=== PATIENT | male | born 1975 | race Caucasian/White ===

== ENCOUNTER 2016-11-27 07:53 | Outpatient (RCR) | payer MEDICARE, MEDICAID | END 2016-11-28 | LOC: M PT 07:53 | PROVIDERS: ATTEND Student in an Organized Health Care Education/Training Program | DX: S82.034D Nondisplaced transverse fracture of right patella, subsequent encounter for closed fracture with routine healing (principal); X58.XXXD Exposure to other specified factors, subsequent encounter; Y92.9 Unspecified place or not applicable | CPT/HCPCS: 97110; 97161; G8978; G8979 ==

== ENCOUNTER 2016-12-03 09:22 | Outpatient (RCR) | payer MEDICARE, MEDICAID | END 2016-12-28 | LOC: M PT 09:22 | PROVIDERS: ATTEND Student in an Organized Health Care Education/Training Program | DX: S82.034D Nondisplaced transverse fracture of right patella, subsequent encounter for closed fracture with routine healing (principal); X58.XXXD Exposure to other specified factors, subsequent encounter; Y92.9 Unspecified place or not applicable | CPT/HCPCS: 97110; G8979; G8980 ==

== ENCOUNTER 2020-05-14 07:38 | Outpatient (CLI) | payer MEDICARE, MEDICAID ==
[~2020-05-14] VITALS: Ht 182.9 cm; Wt 94.5 kg
[2020-05-14 07:45] VITALS: BP 133/77
[2020-05-14] MEDS ORDERED: NATALIZUMAB OVER 1 HOUR IV ONE ×2 (08:00)
[2020-05-14] MEDS ORDERED: TRAZ-252 PO (08:03)
[2020-05-14] MEDS ORDERED: OXYB5TAB10 PO (08:04)
[2020-05-14] MEDS ORDERED: TYSA1INJ IV (08:05)
[2020-05-14 08:08] VITALS: BP 133/77
[2020-05-14 10:00] VITALS: BP 114/69
== END 2020-05-14 10:00 | disposition home or self-care (01) ==
LOC: M INFU 07:38
PROVIDERS: ATTEND Psychiatry & Neurology Neurology
DX: G35 Multiple sclerosis (principal)
CPT/HCPCS: 96365; J2323

== ENCOUNTER 2020-06-13 07:46 | Outpatient (CLI) | payer MEDICARE, MEDICAID ==
[~2020-06-13] VITALS: Ht 182.9 cm; Wt 110.0 kg
[~2020-06-13 07:46] MED LIST: OXYB5TAB10 PO; TRAZ-252 PO; TYSA1INJ IV
[2020-06-13 07:50] VITALS: BP 127/70
[2020-06-13] MEDS: NATALIZUMAB OVER 1 HOUR IV ONE ×2 (08:19)
[2020-06-13 09:40] VITALS: BP 155/81
== END 2020-06-13 09:40 | disposition home or self-care (01) ==
LOC: M INFU 07:46
PROVIDERS: ATTEND Psychiatry & Neurology Neurology
DX: G35 Multiple sclerosis (principal)
CPT/HCPCS: 96365; J2323

== ENCOUNTER 2020-07-13 08:32 | Outpatient (CLI) | payer MEDICARE, MEDICAID ==
[~2020-07-13] VITALS: Ht 182.9 cm; Wt 100.0 kg
[~2020-07-13 08:32] MED LIST changes: +NATALIZUMAB OVER 1 HOUR IV ONE
[2020-07-13 08:35] VITALS: BP 112/74
[2020-07-13 10:15] VITALS: BP 106/73
== END 2020-07-13 10:15 | disposition home or self-care (01) ==
LOC: M INFU 08:32
PROVIDERS: ATTEND Psychiatry & Neurology Neurology
DX: G35 Multiple sclerosis (principal)
CPT/HCPCS: 96365; J2323

== ENCOUNTER 2020-09-12 07:53 | Outpatient (CLI) | payer MEDICARE, MEDICAID ==
[~2020-09-12] VITALS: Ht 182.9 cm; Wt 102.0 kg
[~2020-09-12 07:53] MED LIST changes: -NATALIZUMAB OVER 1 HOUR IV ONE
[2020-09-12 08:00] VITALS: BP 121/71
[2020-09-12] MEDS ORDERED: NATALIZUMAB OVER 1 HOUR IV ONE ×2 (08:00)
[2020-09-12 09:45] VITALS: BP 110/66
== END 2020-09-13 09:45 | disposition home or self-care (01) ==
LOC: M INFU 07:53
PROVIDERS: ATTEND Psychiatry & Neurology Neurology
DX: G35 Multiple sclerosis (principal)
CPT/HCPCS: 96365; J2323

== ENCOUNTER 2020-10-12 07:57 | Outpatient (CLI) | payer MEDICARE, MEDICAID ==
[~2020-10-12] VITALS: Ht 182.9 cm; Wt 102.0 kg
[2020-10-12] MEDS ORDERED: NATALIZUMAB OVER 1 HOUR IV ONE ×2 (08:00)
[2020-10-12 08:12] VITALS: BP 125/75
[2020-10-12 08:16] VITALS: BP 125/75
[2020-10-12 09:44] VITALS: BP 109/67
== END 2020-10-12 09:50 | disposition home or self-care (01) ==
LOC: M INFU 07:57
PROVIDERS: ATTEND Psychiatry & Neurology Neurology
DX: G35 Multiple sclerosis (principal)
CPT/HCPCS: 96365; J2323

== ENCOUNTER 2020-11-12 07:51 | Outpatient (CLI) | payer MEDICARE, MEDICAID ==
[~2020-11-12] VITALS: Ht 182.9 cm; Wt 105.7 kg
[~2020-11-12 07:51] MED LIST changes: +ALBUTEROL SULFATE 2.5 MG/0.5 ML INH NEB SOLN INH PRN; +EPINEPHrine INJ 1 MG/ML 1ML AMP IM PRN; +diphenhydrAMINE 50MG/ML VIAL (J1200) IV PRN; +methylPREDNISolone 125MG 2ML VIAL IV PRN
[2020-11-12] MEDS ORDERED: NS 1,000 ML IV ONE (08:00)
[2020-11-12] MEDS ORDERED: NATALIZUMAB OVER 1 HOUR IV ONE ×2 (08:00)
[2020-11-12 08:05] VITALS: BP 122/73
== END 2020-11-12 09:50 | disposition home or self-care (01) ==
LOC: M INFU 07:51
PROVIDERS: ATTEND Psychiatry & Neurology Neurology
DX: G35 Multiple sclerosis (principal)
CPT/HCPCS: 96365; J2323

== ENCOUNTER 2020-12-10 07:49 | Outpatient (CLI) | payer MEDICARE, MEDICAID ==
[~2020-12-10] VITALS: Ht 182.9 cm; Wt 105.7 kg
[2020-12-10 08:00] VITALS: BP 112/82
[2020-12-10] MEDS ORDERED: NATALIZUMAB OVER 1 HOUR IV ONE ×2 (08:00)
[2020-12-10 09:30] VITALS: BP 115/76
== END 2020-12-10 09:30 | disposition home or self-care (01) ==
LOC: M INFU 07:49
PROVIDERS: ATTEND Psychiatry & Neurology Neurology
DX: G35 Multiple sclerosis (principal)
CPT/HCPCS: 96365; J2323

== ENCOUNTER 2021-01-07 09:52 | Outpatient (CLI) | payer MEDICARE, MEDICAID ==
[~2021-01-07] VITALS: Ht 182.9 cm; Wt 105.7 kg
[2021-01-07 09:55] VITALS: BP 133/60
[2021-01-07] MEDS ORDERED: NATALIZUMAB OVER 1 HOUR IV ONE ×2 (10:00)
[2021-01-07] MEDS ORDERED: NS 1,000 ML IV SCH (10:00)
[2021-01-07 11:20] VITALS: BP 134/92
== END 2021-01-07 11:25 | disposition home or self-care (01) ==
LOC: M INFU 09:52
PROVIDERS: ATTEND Psychiatry & Neurology Neurology
DX: G35 Multiple sclerosis (principal)
CPT/HCPCS: 96365; J2323

== ENCOUNTER 2021-02-04 08:13 | Outpatient (CLI) | payer MEDICARE, MEDICAID ==
[~2021-02-04] VITALS: Ht 182.9 cm; Wt 105.7 kg
[~2021-02-04 08:13] MED LIST changes: -ALBUTEROL SULFATE 2.5 MG/0.5 ML INH NEB SOLN INH PRN; -EPINEPHrine INJ 1 MG/ML 1ML AMP IM PRN; -diphenhydrAMINE 50MG/ML VIAL (J1200) IV PRN; -methylPREDNISolone 125MG 2ML VIAL IV PRN
[2021-02-04] MEDS ORDERED: diphenhydrAMINE 50MG/ML VIAL (J1200) IV PRN (08:30)
[2021-02-04] MEDS ORDERED: NS 1,000 ML IV SCH (08:30)
[2021-02-04] MEDS ORDERED: NATALIZUMAB OVER 1 HOUR IV ONE ×2 (08:30)
[2021-02-04] MEDS ORDERED: methylPREDNISolone 125MG 2ML VIAL IV PRN (08:30)
[2021-02-04] MEDS ORDERED: ALBUTEROL SULFATE 2.5 MG/0.5 ML INH NEB SOLN INH PRN (08:30)
[2021-02-04] MEDS ORDERED: EPINEPHrine INJ 1 MG/ML 1ML AMP IM PRN (08:30)
[2021-02-04 08:50] VITALS: BP 130/75
[2021-02-04 10:00] VITALS: BP 128/64
== END 2021-02-04 10:00 | disposition home or self-care (01) ==
LOC: M INFU 08:13
PROVIDERS: ATTEND Psychiatry & Neurology Neurology
DX: G35 Multiple sclerosis (principal)
CPT/HCPCS: 96365; J2323

== ENCOUNTER 2021-03-05 08:23 | Outpatient (CLI) | payer MEDICARE, MEDICAID ==
[~2021-03-05] VITALS: Ht 182.9 cm; Wt 105.7 kg
[~2021-03-05 08:23] MED LIST changes: +ALBUTEROL SULFATE 2.5 MG/0.5 ML INH NEB SOLN INH PRN; +EPINEPHrine INJ 1 MG/ML 1ML AMP IM PRN; +NATALIZUMAB OVER 1 HOUR IV ONE; +NS 1,000 ML IV SCH; +diphenhydrAMINE 50MG/ML VIAL (J1200) IV PRN; +methylPREDNISolone 125MG 2ML VIAL IV PRN
[2021-03-05 08:38] VITALS: BP 109/70
[2021-03-05 09:55] VITALS: BP 111/76
== END 2021-03-05 09:55 | disposition home or self-care (01) ==
LOC: M INFU 08:23
PROVIDERS: ATTEND Psychiatry & Neurology Neurology
DX: G35 Multiple sclerosis (principal)
CPT/HCPCS: 96365; J2323

== ENCOUNTER 2021-04-01 08:12 | Outpatient (CLI) | payer MEDICAID, MEDICARE ==
[~2021-04-01] VITALS: Ht 182.9 cm; Wt 105.7 kg
[~2021-04-01 08:12] MED LIST changes: -NATALIZUMAB OVER 1 HOUR IV ONE; -NS 1,000 ML IV SCH
[2021-04-01 08:20] VITALS: BP 125/75
[2021-04-01 08:30] VITALS: BP 125/75
[2021-04-01] MEDS ORDERED: NS 1,000 ML IV SCH (08:30)
[2021-04-01] MEDS ORDERED: NATALIZUMAB OVER 1 HOUR IV ONE ×2 (08:30)
[2021-04-01 09:43] VITALS: BP 119/70
== END 2021-04-01 09:50 | disposition home or self-care (01) ==
LOC: M INFU 08:12
PROVIDERS: ATTEND Psychiatry & Neurology Neurology
DX: G35 Multiple sclerosis (principal)
CPT/HCPCS: 96365; J2323

== ENCOUNTER 2021-04-29 08:29 | Outpatient (CLI) | payer MEDICARE ==
[~2021-04-29] VITALS: Ht 182.9 cm; Wt 105.7 kg
[2021-04-29 08:35] VITALS: BP 119/74
[2021-04-29 08:57] VITALS: BP 119/74
[2021-04-29] MEDS ORDERED: NATALIZUMAB OVER 1 HOUR IV ONE ×2 (09:00)
[2021-04-29] MEDS ORDERED: NS 1,000 ML IV SCH (09:00)
[2021-04-29 10:20] VITALS: BP 105/70
== END 2021-04-29 10:20 | disposition home or self-care (01) ==
LOC: M INFU 08:29
PROVIDERS: ATTEND Psychiatry & Neurology Neurology
DX: G35 Multiple sclerosis (principal)
CPT/HCPCS: 96365; J2323

== ENCOUNTER 2021-05-31 08:29 | Outpatient (CLI) | payer MEDICARE ==
[~2021-05-31] VITALS: Ht 182.9 cm; Wt 98.0 kg
[~2021-05-31 08:29] MED LIST changes: +NS 1,000 ML IV SCH
[2021-05-31] MEDS ORDERED: NATALIZUMAB OVER 1 HOUR IV ONE ×2 (08:30)
[2021-05-31 08:35] VITALS: BP 117/57
[2021-05-31 08:50] VITALS: BP 117/57
[2021-05-31 10:29] VITALS: BP 108/65
== END 2021-05-31 10:25 | disposition home or self-care (01) ==
LOC: M INFU 08:29
PROVIDERS: ATTEND Psychiatry & Neurology Neurology
DX: G35 Multiple sclerosis (principal)
CPT/HCPCS: 96365; J2323

== ENCOUNTER 2021-06-27 11:15 | Outpatient (RCR) | payer MEDICARE ==
[~2021-06-27 11:15] MED LIST changes: -ALBUTEROL SULFATE 2.5 MG/0.5 ML INH NEB SOLN INH PRN; -EPINEPHrine INJ 1 MG/ML 1ML AMP IM PRN; -NS 1,000 ML IV SCH; -diphenhydrAMINE 50MG/ML VIAL (J1200) IV PRN; -methylPREDNISolone 125MG 2ML VIAL IV PRN
== END 2021-06-30 ==
LOC: M PT 11:15
PROVIDERS: ATTEND Psychiatry & Neurology Neurology
DX: G35 Multiple sclerosis (principal)

== ENCOUNTER 2021-06-28 08:29 | Outpatient (CLI) | payer MEDICARE ==
[~2021-06-28] VITALS: Ht 182.9 cm; Wt 98.0 kg
[~2021-06-28 08:29] MED LIST changes: +ALBUTEROL SULFATE 2.5 MG/0.5 ML INH NEB SOLN INH PRN; +EPINEPHrine INJ 1 MG/ML 1ML AMP IM PRN; +NS 1,000 ML IV SCH; +diphenhydrAMINE 50MG/ML VIAL (J1200) IV PRN; +methylPREDNISolone 125MG 2ML VIAL IV PRN
[2021-06-28] MEDS ORDERED: NATALIZUMAB OVER 1 HOUR IV ONE ×2 (08:30)
[2021-06-28 10:50] VITALS: BP 147/81
== END 2021-06-28 10:50 | disposition home or self-care (01) ==
LOC: M INFU 08:29
PROVIDERS: ATTEND Psychiatry & Neurology Neurology
DX: G35 Multiple sclerosis (principal)
CPT/HCPCS: 96365; J2323

== ENCOUNTER 2021-07-09 07:29 | Outpatient (RCR) | payer MEDICARE ==
[~2021-07-09 07:29] MED LIST changes: -ALBUTEROL SULFATE 2.5 MG/0.5 ML INH NEB SOLN INH PRN; -EPINEPHrine INJ 1 MG/ML 1ML AMP IM PRN; -NS 1,000 ML IV SCH; -diphenhydrAMINE 50MG/ML VIAL (J1200) IV PRN; -methylPREDNISolone 125MG 2ML VIAL IV PRN
== END 2021-07-30 ==
LOC: M PT 07:29
PROVIDERS: ATTEND Psychiatry & Neurology Neurology
DX: G35 Multiple sclerosis (principal)

== ENCOUNTER 2021-07-29 08:44 | Outpatient (CLI) | payer MEDICARE, MEDICAID ==
[~2021-07-29] VITALS: Ht 182.9 cm; Wt 98.0 kg
[~2021-07-29 08:44] MED LIST changes: +ALBUTEROL SULFATE 2.5 MG/0.5 ML INH NEB SOLN INH PRN; +EPINEPHrine INJ 1 MG/ML 1ML AMP IM PRN; +diphenhydrAMINE 50MG/ML VIAL (J1200) IV PRN; +methylPREDNISolone 125MG 2ML VIAL IV PRN
[2021-07-29 09:00] VITALS: BP 126/73
[2021-07-29] MEDS ORDERED: NATALIZUMAB OVER 1 HOUR IV ONE ×2 (09:00)
[2021-07-29] MEDS ORDERED: NS 1,000 ML IV SCH (09:00)
[2021-07-29 10:30] VITALS: BP 116/66
== END 2021-07-29 10:40 | disposition home or self-care (01) ==
LOC: M INFU 08:44
PROVIDERS: ATTEND Psychiatry & Neurology Neurology
DX: G35 Multiple sclerosis (principal)
CPT/HCPCS: 96365; J2323

== ENCOUNTER 2021-08-26 07:48 | Outpatient (CLI) | payer MEDICARE ==
[~2021-08-26] VITALS: Ht 188 cm; Wt 98.0 kg
[2021-08-26 08:11] VITALS: BP 134/81
[2021-08-26] MEDS ORDERED: NATALIZUMAB OVER 1 HOUR IV ONE ×2 (08:30)
[2021-08-26] MEDS ORDERED: NS 1,000 ML IV SCH (08:30)
[2021-08-26 09:35] VITALS: BP 122/81
== END 2021-08-26 09:30 | disposition home or self-care (01) ==
LOC: M INFU 07:48
PROVIDERS: ATTEND Psychiatry & Neurology Neurology
DX: G35 Multiple sclerosis (principal)
CPT/HCPCS: 96365; J2323

== ENCOUNTER 2021-09-23 08:02 | Outpatient (CLI) | payer MEDICARE ==
[~2021-09-23] VITALS: Ht 182.9 cm; Wt 98.0 kg
[2021-09-23 08:05] VITALS: BP 133/85
[2021-09-23] MEDS ORDERED: NATALIZUMAB OVER 1 HOUR IV ONE ×2 (08:30)
[2021-09-23 09:45] VITALS: BP 131/89
== END 2021-09-23 09:45 | disposition home or self-care (01) ==
LOC: M INFU 08:02
PROVIDERS: ATTEND Psychiatry & Neurology Neurology
DX: G35 Multiple sclerosis (principal)
CPT/HCPCS: 96365; J2323

== ENCOUNTER 2021-10-21 08:22 | Outpatient (CLI) | payer MEDICARE ==
[~2021-10-21] VITALS: Ht 182.9 cm; Wt 98.0 kg
[~2021-10-21 08:22] MED LIST changes: +NS 1,000 ML IV SCH
[2021-10-21 08:36] VITALS: BP 126/82
[2021-10-21] MEDS ORDERED: NATALIZUMAB OVER 1 HOUR IV ONE ×2 (09:00)
[2021-10-21 10:00] VITALS: BP 133/78
== END 2021-10-21 10:00 | disposition home or self-care (01) ==
LOC: M INFU 08:22
PROVIDERS: ATTEND Psychiatry & Neurology Neurology
DX: G35 Multiple sclerosis (principal)
CPT/HCPCS: 96365; J2323

== ENCOUNTER 2021-11-18 08:39 | Outpatient (CLI) | payer MEDICARE ==
[~2021-11-18] VITALS: Ht 182.9 cm; Wt 98.0 kg
[~2021-11-18 08:39] MED LIST changes: +NATALIZUMAB OVER 1 HOUR IV ONE
[2021-11-18 08:45] VITALS: BP 105/71
[2021-11-18 10:24] VITALS: BP 121/73
== END 2021-11-18 10:25 | disposition home or self-care (01) ==
LOC: M INFU 08:39
PROVIDERS: ATTEND Psychiatry & Neurology Neurology
DX: G35 Multiple sclerosis (principal)
CPT/HCPCS: 96365; J2323

== ENCOUNTER 2021-12-16 09:25 | Outpatient (CLI) | payer MEDICARE ==
[~2021-12-16] VITALS: Ht 182.9 cm; Wt 98.0 kg
[~2021-12-16 09:25] MED LIST changes: -ALBUTEROL SULFATE 2.5 MG/0.5 ML INH NEB SOLN INH PRN; -EPINEPHrine INJ 1 MG/ML 1ML AMP IM PRN; -NS 1,000 ML IV SCH; -diphenhydrAMINE 50MG/ML VIAL (J1200) IV PRN; -methylPREDNISolone 125MG 2ML VIAL IV PRN
[2021-12-16 09:30] VITALS: BP 136/86
[2021-12-16 11:00] VITALS: BP 136/86
[2021-12-16 11:10] VITALS: BP 136/87
== END 2021-12-16 11:10 | disposition home or self-care (01) ==
LOC: M INFU 09:25
PROVIDERS: ATTEND Psychiatry & Neurology Neurology
DX: G35 Multiple sclerosis (principal)
CPT/HCPCS: 96365; J2323

== ENCOUNTER 2022-01-15 07:55 | Outpatient (CLI) | payer MEDICARE ==
[~2022-01-15] VITALS: Ht 182.9 cm; Wt 98.0 kg
[~2022-01-15 07:55] MED LIST changes: -NATALIZUMAB OVER 1 HOUR IV ONE
[2022-01-15 08:00] VITALS: BP 113/75
[2022-01-15] MEDS ORDERED: NATALIZUMAB OVER 1 HOUR IV ONE ×2 (08:00)
[2022-01-15 09:25] VITALS: BP 118/74
== END 2022-01-15 09:40 | disposition home or self-care (01) ==
LOC: M INFU 07:55
PROVIDERS: ATTEND Psychiatry & Neurology Neurology
DX: G35 Multiple sclerosis (principal)
CPT/HCPCS: 96365; J2323

== ENCOUNTER 2022-02-14 08:15 | Outpatient (CLI) | payer MEDICARE ==
[~2022-02-14] VITALS: Ht 182.9 cm; Wt 100.0 kg
[~2022-02-14 08:15] MED LIST changes: +NATALIZUMAB OVER 1 HOUR IV ONE
[2022-02-14 08:30] VITALS: BP 144/80
[2022-02-14 09:55] VITALS: BP 138/76
== END 2022-02-14 09:55 | disposition home or self-care (01) ==
LOC: M INFU 08:15
PROVIDERS: ATTEND Psychiatry & Neurology Neurology
DX: G35 Multiple sclerosis (principal)
CPT/HCPCS: 96365; J2323

== ENCOUNTER 2022-03-17 08:30 | Outpatient (CLI) | payer MEDICARE ==
[~2022-03-17] VITALS: Ht 182.9 cm; Wt 100.0 kg
[2022-03-17 08:30] VITALS: BP 125/78
[2022-03-17 10:25] VITALS: BP 113/73
== END 2022-03-17 10:25 | disposition home or self-care (01) ==
LOC: M INFU 08:30
PROVIDERS: ATTEND Psychiatry & Neurology Neurology
DX: G35 Multiple sclerosis (principal)
CPT/HCPCS: 96365; J2323

== ENCOUNTER 2022-04-16 06:55 | Outpatient (CLI) | payer MEDICARE ==
[~2022-04-16] VITALS: Ht 182.9 cm; Wt 98.0 kg
[~2022-04-16 06:55] MED LIST changes: -NATALIZUMAB OVER 1 HOUR IV ONE
[2022-04-16 07:06] VITALS: BP 126/81
[2022-04-16] MEDS ORDERED: NATALIZUMAB OVER 1 HOUR IV ONE ×2 (08:00)
[2022-04-16 08:30] VITALS: BP 129/80
== END 2022-04-16 08:30 | disposition home or self-care (01) ==
LOC: M INFU 06:55
PROVIDERS: ATTEND Psychiatry & Neurology Neurology
DX: G35 Multiple sclerosis (principal)
CPT/HCPCS: 96365; J2323

== ENCOUNTER 2022-05-16 08:00 | Outpatient (CLI) | payer MEDICARE ==
[~2022-05-16] VITALS: Ht 182.9 cm; Wt 98.0 kg
[~2022-05-16 08:00] MED LIST changes: +NATALIZUMAB OVER 1 HOUR IV ONE
[2022-05-16 08:04] VITALS: BP 118/68
[2022-05-16 08:05] VITALS: BP 118/68
[2022-05-16 09:25] VITALS: BP 124/78
== END 2022-05-16 09:25 | disposition home or self-care (01) ==
LOC: M INFU 08:00
PROVIDERS: ATTEND Psychiatry & Neurology Neurology
DX: G35 Multiple sclerosis (principal)
CPT/HCPCS: 96365; J2323

== ENCOUNTER 2022-06-16 07:50 | Outpatient (CLI) | payer MEDICARE ==
[~2022-06-16] VITALS: Ht 182.9 cm; Wt 100.0 kg
[2022-06-16 07:50] VITALS: BP 123/80
[~2022-06-16 07:50] MED LIST changes: -NATALIZUMAB OVER 1 HOUR IV ONE
[2022-06-16] MEDS ORDERED: NATALIZUMAB OVER 1 HOUR IV ONE ×2 (08:00)
[2022-06-16 09:30] VITALS: BP 106/66
== END 2022-06-16 09:30 | disposition home or self-care (01) ==
LOC: M INFU 07:50
PROVIDERS: ATTEND Psychiatry & Neurology Neurology
DX: G35 Multiple sclerosis (principal)
CPT/HCPCS: 96365; J2323

== ENCOUNTER 2022-07-14 09:40 | Outpatient (CLI) | payer MEDICARE ==
[~2022-07-14] VITALS: Ht 182.9 cm; Wt 98.0 kg
[2022-07-14 09:40] VITALS: BP 128/73
[~2022-07-14 09:40] MED LIST changes: +NATALIZUMAB OVER 1 HOUR IV ONE
[2022-07-14 11:10] VITALS: BP 125/79
== END 2022-07-14 11:10 | disposition home or self-care (01) ==
LOC: M INFU 09:40
PROVIDERS: ATTEND Psychiatry & Neurology Neurology
DX: G35 Multiple sclerosis (principal)
CPT/HCPCS: 96365; J2323

== ENCOUNTER 2022-07-29 09:15 | Outpatient (RCR) | payer MEDICARE ==
[~2022-07-29 09:15] MED LIST changes: -NATALIZUMAB OVER 1 HOUR IV ONE
== END 2022-07-30 ==
LOC: M PT 09:15
DX: G35 Multiple sclerosis (principal); W19.XXXA Unspecified fall, initial encounter

== ENCOUNTER 2022-08-05 09:15 | Outpatient (RCR) | payer MEDICARE | END 2022-08-30 | LOC: M PT 09:15 | DX: G35 Multiple sclerosis (principal); W19.XXXD Unspecified fall, subsequent encounter; Z53.9 Procedure and treatment not carried out, unspecified reason ==

== ENCOUNTER 2022-08-11 09:25 | Outpatient (CLI) | payer MEDICARE ==
[~2022-08-11] VITALS: Ht 182.9 cm; Wt 98.0 kg
[2022-08-11] MEDS ORDERED: NATALIZUMAB OVER 1 HOUR IV ONE ×2 (09:30)
[2022-08-11 09:49] VITALS: BP 135/77
[2022-08-11 10:47] VITALS: BP 120/74
== END 2022-08-11 10:45 | disposition home or self-care (01) ==
LOC: M INFU 09:25
PROVIDERS: ATTEND Psychiatry & Neurology Neurology
DX: G35 Multiple sclerosis (principal)
CPT/HCPCS: 96365; J2323

== ENCOUNTER 2022-09-08 08:03 | Outpatient (CLI) | payer MEDICARE ==
[~2022-09-08] VITALS: Ht 182.9 cm; Wt 98.0 kg
[~2022-09-08 08:03] MED LIST changes: +NATALIZUMAB OVER 1 HOUR IV ONE
[2022-09-08 08:05] VITALS: BP 117/68
[2022-09-08 09:49] VITALS: BP 127/83
== END 2022-09-08 09:50 | disposition home or self-care (01) ==
LOC: M INFU 08:03
PROVIDERS: ATTEND Psychiatry & Neurology Neurology
DX: G35 Multiple sclerosis (principal)
CPT/HCPCS: 96365; J2323

== ENCOUNTER 2022-10-06 08:00 | Outpatient (CLI) | payer MEDICARE ==
[2022-10-06 08:10] VITALS: BP 108/64
== END 2022-10-06 09:45 | disposition home or self-care (01) ==
LOC: M INFU 08:00
PROVIDERS: ATTEND Psychiatry & Neurology Neurology
DX: G35 Multiple sclerosis (principal)
CPT/HCPCS: 96365; J2323

== ENCOUNTER 2022-11-03 07:55 | Outpatient (CLI) | payer MEDICARE ==
[~2022-11-03 07:55] MED LIST changes: -NATALIZUMAB OVER 1 HOUR IV ONE
[2022-11-03] MEDS ORDERED: NATALIZUMAB OVER 1 HOUR IV ONE ×2 (08:00)
[2022-11-03 08:11] VITALS: BP 147/93
[2022-11-03 09:21] VITALS: BP 137/84
== END 2022-11-03 09:25 ==
LOC: M INFU 07:55
PROVIDERS: ATTEND Psychiatry & Neurology Neurology
DX: G35 Multiple sclerosis (principal)
CPT/HCPCS: 96365; J2323

== ENCOUNTER 2022-12-01 08:02 | Outpatient (CLI) | payer MEDICARE ==
[~2022-12-01] VITALS: Ht 182.9 cm; Wt 98.0 kg
[2022-12-01 08:00] VITALS: BP 147/77
[~2022-12-01 08:02] MED LIST changes: +NATALIZUMAB OVER 1 HOUR IV ONE
[2022-12-01 09:50] VITALS: BP 151/84
== END 2022-12-01 09:50 | disposition home or self-care (01) ==
LOC: M INFU 08:02
PROVIDERS: ATTEND Psychiatry & Neurology Neurology
DX: G35 Multiple sclerosis (principal)
CPT/HCPCS: 96365; J2323

== ENCOUNTER 2022-12-29 08:00 | Outpatient (CLI) | payer MEDICARE ==
[~2022-12-29] VITALS: Ht 188 cm; Wt 100.7 kg
[2022-12-29 08:00] VITALS: BP 112/74
[~2022-12-29 08:00] MED LIST changes: +ALBUTEROL SULFATE 2.5MG/0.5ML INH NEB SOLN INH PRN; +EPINEPHrine INJ 1 MG/ML 1ML AMP IM PRN; +NS 1,000 ML IV SCH; +diphenhydrAMINE 50MG/ML VIAL IV PRN; +methylPREDNISolone 125MG 2ML VIAL IV PRN
[2022-12-29 09:29] VITALS: BP 117/74
[2022-12-29 09:32] VITALS: BP 117/74
== END 2022-12-29 09:35 ==
LOC: M INFU 08:00
PROVIDERS: ATTEND Psychiatry & Neurology Neurology
DX: G35 Multiple sclerosis (principal)
CPT/HCPCS: 96365; J2323

== ENCOUNTER 2023-01-27 08:10 | Outpatient (CLI) | payer MEDICARE ==
[~2023-01-27] VITALS: Ht 188 cm; Wt 100.7 kg
[2023-01-27 08:05] VITALS: BP 118/71
[2023-01-27 09:50] VITALS: BP 129/86
== END 2023-01-27 09:50 | disposition home or self-care (01) ==
LOC: M INFU 08:10
PROVIDERS: ATTEND Psychiatry & Neurology Neurology
DX: G35 Multiple sclerosis (principal)
CPT/HCPCS: 96365; J2323

== ENCOUNTER 2023-02-26 13:20 | Outpatient (CLI) | payer MEDICARE ==
[~2023-02-26] VITALS: Ht 188 cm; Wt 101.0 kg
[~2023-02-26 13:20] MED LIST changes: -NATALIZUMAB OVER 1 HOUR IV ONE; -NS 1,000 ML IV SCH
[2023-02-26] MEDS ORDERED: NS 1,000 ML IV SCH (13:30)
[2023-02-26] MEDS ORDERED: NATALIZUMAB OVER 1 HOUR IV ONE ×2 (13:30)
[2023-02-26 13:45] VITALS: BP 136/85; O2SAT 99
[2023-02-26 15:00] VITALS: BP 114/70; O2SAT 98
== END 2023-02-26 15:05 ==
LOC: M INFU 13:20
PROVIDERS: ATTEND Psychiatry & Neurology Neurology
DX: G35 Multiple sclerosis (principal)
CPT/HCPCS: 96365; J2323

== ENCOUNTER 2023-03-24 08:15 | Outpatient (CLI) | payer MEDICARE ==
[~2023-03-24] VITALS: Ht 188 cm; Wt 101.0 kg
[2023-03-24] MEDS ORDERED: NS 1,000 ML IV SCH (08:30)
[2023-03-24] MEDS ORDERED: NATALIZUMAB OVER 1 HOUR IV ONE ×2 (08:30)
[2023-03-24 08:32] VITALS: BP 125/74; O2SAT 97
[2023-03-24 09:39] VITALS: BP 117/75; O2SAT 99
== END 2023-03-24 09:40 ==
LOC: M INFU 08:15
PROVIDERS: ATTEND Psychiatry & Neurology Neurology
DX: G35 Multiple sclerosis (principal)
CPT/HCPCS: 96365; J2323

== ENCOUNTER 2023-04-21 08:25 | Outpatient (CLI) | payer MEDICARE ==
[2023-04-21 08:25] VITALS: BP 148/78; O2SAT 98
[2023-04-21] MEDS ORDERED: NATALIZUMAB OVER 1 HOUR IV ONE ×2 (08:30)
[2023-04-21] MEDS ORDERED: NS 1,000 ML IV SCH (08:30)
[2023-04-21 10:25] VITALS: BP 114/63; O2SAT 97
== END 2023-04-21 10:30 ==
LOC: M INFU 08:25
PROVIDERS: ATTEND Psychiatry & Neurology Neurology
DX: G35 Multiple sclerosis (principal)
CPT/HCPCS: 96365; J2323

== ENCOUNTER 2023-05-19 08:30 | Outpatient (CLI) | payer MEDICARE ==
[~2023-05-19] VITALS: Ht 182.9 cm; Wt 100.5 kg
[2023-05-19 08:30] VITALS: BP 120/89; O2SAT 96
[~2023-05-19 08:30] MED LIST changes: +NATALIZUMAB OVER 1 HOUR IV ONE; +NS 1,000 ML IV SCH
[2023-05-19 10:15] VITALS: BP 128/65; O2SAT 97
== END 2023-05-19 10:20 ==
LOC: M INFU 08:30
PROVIDERS: ATTEND Psychiatry & Neurology Neurology
DX: G35 Multiple sclerosis (principal)
CPT/HCPCS: 96365; J2323

== ENCOUNTER 2023-06-16 08:30 | Outpatient (CLI) | payer MEDICARE ==
[~2023-06-16] VITALS: Ht 182.9 cm; Wt 100.2 kg
[2023-06-16 08:25] VITALS: BP 129/83; O2SAT 99
[~2023-06-16 08:30] MED LIST changes: -NATALIZUMAB OVER 1 HOUR IV ONE; -OXYB5TAB10 PO; +OXYB5TAB11 PO
[2023-06-16] MEDS ORDERED: NATALIZUMAB OVER 1 HOUR IV ONE ×2 (08:45)
[2023-06-16 10:45] VITALS: BP 112/72; O2SAT 96
== END 2023-06-16 10:45 | disposition home or self-care (01) ==
LOC: M INFU 08:30
PROVIDERS: ATTEND Psychiatry & Neurology Neurology
DX: G35 Multiple sclerosis (principal)
CPT/HCPCS: 96365; J2323

== ENCOUNTER 2023-07-21 07:00 | Outpatient (CLI) | payer MEDICARE ==
[~2023-07-21] VITALS: Ht 182.9 cm; Wt 100.0 kg
[~2023-07-21 07:00] MED LIST changes: -ALBUTEROL SULFATE 2.5MG/0.5ML INH NEB SOLN INH PRN; -EPINEPHrine INJ 1 MG/ML 1ML AMP IM PRN; -NS 1,000 ML IV SCH; -diphenhydrAMINE 50MG/ML VIAL IV PRN; -methylPREDNISolone 125MG 2ML VIAL IV PRN
[2023-07-21 07:14] VITALS: BP 132/82; O2SAT 100
[2023-07-21] MEDS ORDERED: ACETAMINOPHEN TAB 650MG DOSE (2X325MG) PO ONE (08:00)
[2023-07-21] MEDS ORDERED: diphenhydrAMINE 25MG CAP PO ONE (08:00)
[2023-07-21] MEDS ORDERED: methylPREDNISolone 125MG 2ML VIAL IV ONE (08:00)
[2023-07-21] MEDS ORDERED: OCRELIZUMAB 300 MG in NS 250 ML IV ONE (08:00)
[2023-07-21 08:45] VITALS: BP 110/68; TEMP 98; O2SAT 98
[2023-07-21 09:15] VITALS: BP 120/74; TEMP 97.8; O2SAT 100
[2023-07-21 09:45] VITALS: BP 110/68; TEMP 98; O2SAT 98
[2023-07-21 10:59] VITALS: BP 117/58; TEMP 97.7; O2SAT 97
== END 2023-07-21 11:30 ==
LOC: M INFU 07:00
PROVIDERS: ATTEND Psychiatry & Neurology Neurology
DX: G35 Multiple sclerosis (principal)
CPT/HCPCS: 96365; 96366; 96375; J2350; J2930

== ENCOUNTER 2023-08-04 07:15 | Outpatient (CLI) | payer MEDICARE ==
[~2023-08-04] VITALS: Ht 182.9 cm; Wt 100.0 kg
[~2023-08-04 07:15] MED LIST changes: +ACETAMINOPHEN TAB 650MG DOSE (2X325MG) PO ONE; +OCRELIZUMAB 300 MG in NS 250 ML IV ONE; +diphenhydrAMINE 25MG CAP PO ONE; +methylPREDNISolone 125MG 2ML VIAL IV ONE
[2023-08-04 08:31] VITALS: BP 134/86; TEMP 98.4; O2SAT 98
[2023-08-04 11:05] VITALS: BP 130/72; O2SAT 98
== END 2023-08-04 11:05 | disposition home or self-care (01) ==
LOC: M INFU 07:15
PROVIDERS: ATTEND Psychiatry & Neurology Neurology
DX: G35 Multiple sclerosis (principal)
CPT/HCPCS: 96365; 96366; 96367; J2350; J2930

== ENCOUNTER → 2023-09-15 | Outpatient (CLI) | payer MEDICARE ==
[~2023-09-15] MED LIST changes: -ACETAMINOPHEN TAB 650MG DOSE (2X325MG) PO ONE; -OCRELIZUMAB 300 MG in NS 250 ML IV ONE; -diphenhydrAMINE 25MG CAP PO ONE; -methylPREDNISolone 125MG 2ML VIAL IV ONE
[2023-09-15 10:12] LABS: BASO # 0.1 10^3/uL (0.0-0.2); BASO % 0.9 % (0.0-1.0); EOS # 0.1 10^3/uL (0.0-0.5); EOS % 1.2 % (0.0-3.0); HEMATOCRIT 42.8 % (42.0-52.0); HEMOGLOBIN 14.5 g/dl (13.5-17.5); LYMPH # 1.4 10^3/uL (1.5-5.0); LYMPH % 23.8 % (24.0-44.0); MEAN CORPUSCULAR HEMOGLOBIN 31.8 pg (27.0-33.0); MEAN CORPUSCULAR HGB CONC 33.9 g/dl (32.0-36.5); MEAN CORPUSCULAR VOLUME 93.9 fl (80.0-96.0); MONO # 0.7 10^3/uL (0.0-0.8); MONO % 12.2 % (2.0-8.0); NEUTROPHILS # 3.6 10^3/uL (1.5-8.5); NEUTROPHILS % 61.7 % (36.0-66.0); PLATELET COUNT, AUTOMATED 234 10^3/uL (150-450); RED BLOOD COUNT 4.56 10^6/uL (4.30-6.10); WHITE BLOOD COUNT 5.9 10^3/uL (4.0-10.0)
[2023-09-15 10:38] LABS: ALBUMIN 3.7 G/DL (3.2-5.2); ALKALINE PHOSPHATASE 69 U/L (46-116); ALT/SGPT 25 U/L (7.0-40); AST/SGOT 17 U/L (<34); BILIRUBIN,TOTAL 0.6 MG/DL (0.3-1.2); BLOOD UREA NITROGEN 10 MG/DL (9-23); CALCIUM LEVEL 9.2 MG/DL (8.5-10.1); CARBON DIOXIDE LEVEL 28 MMOL/L (20-31); CHLORIDE LEVEL 108 MMOL/L (98-107); GLOMERULAR FILTRATION RATE > 60.0 (>56); GLUCOSE, FASTING 92 MG/DL (60-100); POTASSIUM SERUM 4.1 MMOL/L (3.5-5.1); SODIUM LEVEL 142 MMOL/L (136-145); TOTAL PROTEIN 6.6 G/DL (5.7-8.2)
== END ==
LOC: M PLALAB 08:47
PROVIDERS: ATTEND Psychiatry & Neurology Neurology
DX: G35 Multiple sclerosis (principal)

== ENCOUNTER 2023-09-18 11:02 | Emergency (ER) | payer MEDICARE ==
[~2023-09-18] VITALS: Ht 182.9 cm; Wt 108.6 kg
[2023-09-18] MEDS ORDERED: NS 1,000 ML IV ONE (11:25)
[2023-09-18 12:23] LABS: BASO # 0.1 10^3/uL (0.0-0.2); BASO % 0.4 % (0.0-1.0); EOS % 0.1 % (0.0-3.0); HEMATOCRIT 42.3 % (42.0-52.0); HEMOGLOBIN 14.2 g/dl (13.5-17.5); LYMPH # 0.9 10^3/uL (1.5-5.0); LYMPH % 6.6 % (24.0-44.0); MEAN CORPUSCULAR HEMOGLOBIN 31.4 pg (27.0-33.0); MEAN CORPUSCULAR HGB CONC 33.6 g/dl (32.0-36.5); MEAN CORPUSCULAR VOLUME 93.6 fl (80.0-96.0); MONO % 7.1 % (2.0-8.0); NEUTROPHILS # 11.6 10^3/uL (1.5-8.5); NEUTROPHILS % 85.6 % (36.0-66.0); PLATELET COUNT, AUTOMATED 258 10^3/uL (150-450); RED BLOOD COUNT 4.52 10^6/uL (4.30-6.10); WHITE BLOOD COUNT 13.5 10^3/uL (4.0-10.0)
[2023-09-18 12:30] VITALS: BP 137/76; O2SAT 99
[2023-09-18 12:45] LABS: ALBUMIN 3.8 G/DL (3.2-5.2); BILIRUBIN,DIRECT 0.2 MG/DL (<0.4); BILIRUBIN,TOTAL 0.6 MG/DL (0.3-1.2); CALCIUM LEVEL 8.8 MG/DL (8.5-10.1); CREATININE FOR GFR 1.35 MG/DL (0.70-1.30); GLOMERULAR FILTRATION RATE 59.6 (>56); POTASSIUM SERUM 3.9 MMOL/L (3.5-5.1); TOTAL PROTEIN 6.8 G/DL (5.7-8.2)
[2023-09-18] MEDS ORDERED: LIDOCAINE 2% 5ML JELLY UROJET TOP ONE (12:45)
[2023-09-18 12:58] LABS: RSV AMPLIFICATION NEGATIVE (NEGATIVE)
[2023-09-18] MEDS ORDERED: KETOROLAC 30 MG/ML 1ML VIAL IV ONE (13:20)
[2023-09-18 13:34] VITALS: TEMP 96.9
[2023-09-18] MEDS ORDERED: VITA500C24 PO (15:06)
[2023-09-18] MEDS ORDERED: OCRE300I IV (15:06)
[2023-09-18] MEDS ORDERED: VITA100093 PO (15:06)
[2023-09-18] MEDS ORDERED: HOME MED LIST COMPLETE! XX SCH (15:10)
[2023-09-18] MEDS ORDERED: FLOM0.4C39 PO (15:23)
[2023-09-18] MEDS ORDERED: IBUP-1022 PO (15:24)
== END 2023-09-18 15:55 | disposition home or self-care (01) ==
LOC: EDBD 11:02 → M ED 11:02
DX: N13.30 Unspecified hydronephrosis (principal); N23 Unspecified renal colic; Z79.899 Other long term (current) drug therapy; Z79.83 Long term (current) use of bisphosphonates
CPT/HCPCS: 51701; 71045; 74176; 80048; 80076; 81002; 82150; 83605; 83690; 85025; 87040; 87631; 93041; 96361; 96374; 99284; J1885

== ENCOUNTER → 2023-10-05 | Outpatient (CLI) | payer MEDICARE ==
[~2023-10-05] MED LIST changes: +FLOM0.4C39 PO; +IBUP-1022 PO; +OCRE300I IV; +VITA100093 PO; +VITA500C24 PO
[2023-10-05 18:42] LABS: APPEARANCE, URINE CLEAR (CLEAR); BACTERIA, URINE AUTO NEGATIVE (NEGATIVE); BILIRUBIN, URINE AUTO NEGATIVE (NEGATIVE); BLOOD, URINE BLOOD NEGATIVE (NEGATIVE); COLOR, URINE YELLOW (YELLOW); GLUCOSE, URINE (UA) AUTO NEGATIVE (NEGATIVE); KETONE, URINE AUTO NEGATIVE (NEGATIVE); LEUKOCYTE ESTERASE, URINE AUTO NEGATIVE (NEGATIVE); NITRITE, URINE AUTO NEGATIVE (NEGATIVE); PROTEIN, URINE AUTO NEGATIVE (NEGATIVE); RBC, URINE AUTO 0 /HPF (0-3); SQUAMOUS EPITHELIAL CELL UR AU 0 /HPF (0-6); WBC, URINE AUTO 0 /HPF (0-3)
== END ==
LOC: M PLAIMG 14:18
PROVIDERS: ATTEND Urology
DX: N20.0 Calculus of kidney (principal)

== ENCOUNTER 2023-11-15 19:43 | Inpatient (IN) | payer MEDICARE ==
[~2023-11-15] VITALS: Ht 185.4 cm; Wt 100.0 kg
[~2023-11-15 19:43] MED LIST changes: -OXYB5TAB11 PO; +OXYB5TAB14 PO
[2023-11-15 20:13] VITALS: BP 138/76; TEMP 98.8; O2SAT 98
[2023-11-15] MEDS: NS 1,000 ML IV ONE (20:15)
[2023-11-15 20:30] LABS: BASO # 0.1 10^3/uL (0.0-0.2); BASO % 0.5 % (0.0-1.0); EOS # 0.1 10^3/uL (0.0-0.5); EOS % 0.6 % (0.0-3.0); HEMATOCRIT 46.3 % (42.0-52.0); HEMOGLOBIN 15.6 g/dl (13.5-17.5); LYMPH # 1.6 10^3/uL (1.5-5.0); MEAN CORPUSCULAR HEMOGLOBIN 31.8 pg (27.0-33.0); MEAN CORPUSCULAR HGB CONC 33.7 g/dl (32.0-36.5); MEAN CORPUSCULAR VOLUME 94.3 fl (80.0-96.0); MONO # 1.8 10^3/uL (0.0-0.8); MONO % 15.8 % (2.0-8.0); NEUTROPHILS % 68.7 % (36.0-66.0); PLATELET COUNT, AUTOMATED 221 10^3/uL (150-450); RED BLOOD COUNT 4.91 10^6/uL (4.30-6.10); WHITE BLOOD COUNT 11.7 10^3/uL (4.0-10.0)
[2023-11-15 20:33] LABS: ALBUMIN 3.3 G/DL (3.2-5.2); ALKALINE PHOSPHATASE 176 U/L (46-116); ALT/SGPT 246 U/L (7.0-40); AST/SGOT 141 U/L (<34); BILIRUBIN,DIRECT 0.6 MG/DL (<0.4); BILIRUBIN,TOTAL 1.1 MG/DL (0.3-1.2); BLOOD UREA NITROGEN 16 MG/DL (9-23); CALCIUM LEVEL 9.1 MG/DL (8.5-10.1); CARBON DIOXIDE LEVEL 30 MMOL/L (20-31); CHLORIDE LEVEL 103 MMOL/L (98-107); CK-MB VALUE MASS < 1.0 NG/ML (<3.6); CREATININE FOR GFR 1.15 MG/DL (0.70-1.30); GLOMERULAR FILTRATION RATE > 60.0 (>56); GLUCOSE, FASTING 117 MG/DL (60-100); POTASSIUM SERUM 4.1 MMOL/L (3.5-5.1); SODIUM LEVEL 137 MMOL/L (136-145); TOTAL PROTEIN 6.7 G/DL (5.7-8.2)
[2023-11-15 20:36] LABS: FREE T4 1.12 NG/DL (0.89-1.76); INR 1.06; PARTIAL THROMBOPLASTIN TIME 33.1 SECONDS (24.8-34.2); PROTHROMBIN TIME 13.5 SECONDS (12.5-14.5); THYROID STIMULATING HORMONE 2.036 uIU/ML (0.55-4.78)
[2023-11-15 20:45] LABS: PROCALCITONIN 0.21 ng/ml
[2023-11-15 20:47] LABS: CPK CREATINE PHOSPHOKINASE 142 U/L (46-171)
[2023-11-15 22:03] LABS: CK-MB VALUE MASS < 1.0 NG/ML (<3.6)
[2023-11-15 22:05] LABS: CPK CREATINE PHOSPHOKINASE 127 U/L (46-171); MB/CK RELATIVE INDEX 0.78 (< OR =4)
[2023-11-15] MEDS: LIDOCAINE 2% 5ML JELLY UROJET TOP ONE (22:25)
[2023-11-15] MEDS ORDERED: VALA500T5 PO (23:18)
[2023-11-15] MEDS ORDERED: HOME MED LIST COMPLETE! XX SCH (23:20)
[2023-11-15] MEDS: methylPREDNISolone 1,000 MG, VIAL MATE ADAPTER 1 EACH in NS 250 ML IV ONE (23:24)
[2023-11-15] MEDS ORDERED: MOM 30ML SUSPENSION UDC PO PRN (23:50)
[2023-11-16] MEDS: VANCOMYCIN HCL 1,000 MG, VIAL MATE ADAPTER 1 EACH in D5W 250 ML IV ONE ×2 (02:48)
[2023-11-16] MEDS: CEFEPIME HCL 2 GM in D5W 50 ML IV SCH (04:01)
[2023-11-16 06:00] VITALS: BP 110/71; TEMP 97.7; O2SAT 96
[2023-11-16 06:26] LABS: MEAN CORPUSCULAR HEMOGLOBIN 31.6 pg (27.0-33.0); MEAN CORPUSCULAR HGB CONC 33.1 g/dl (32.0-36.5); MEAN CORPUSCULAR VOLUME 95.7 fl (80.0-96.0); PLATELET COUNT, AUTOMATED 177 10^3/uL (150-450); RED BLOOD COUNT 4.14 10^6/uL (4.30-6.10); WHITE BLOOD COUNT 7.3 10^3/uL (4.0-10.0)
[2023-11-16 06:32] LABS: HEMATOCRIT 39.6 % (42.0-52.0); HEMOGLOBIN 13.1 g/dl (13.5-17.5)
[2023-11-16 07:07] LABS: ALBUMIN 2.7 G/DL (3.2-5.2); ALKALINE PHOSPHATASE 152 U/L (46-116); ALT/SGPT 216 U/L (7.0-40); AST/SGOT 103 U/L (<34); BILIRUBIN,TOTAL 1.4 MG/DL (0.3-1.2); BLOOD UREA NITROGEN 15 MG/DL (9-23); CALCIUM LEVEL 8.4 MG/DL (8.5-10.1); CARBON DIOXIDE LEVEL 23 MMOL/L (20-31); CHLORIDE LEVEL 106 MMOL/L (98-107); GLOMERULAR FILTRATION RATE > 60.0 (>56); GLUCOSE, FASTING 130 MG/DL (60-100); POTASSIUM SERUM 3.9 MMOL/L (3.5-5.1); SODIUM LEVEL 136 MMOL/L (136-145); TOTAL PROTEIN 5.7 G/DL (5.7-8.2)
[2023-11-16] MEDS: DOCUSATE SODIUM 100MG CAPSULE PO SCH (09:27)
[2023-11-16] MEDS: ENOXAPARIN 40MG/0.4ML SYRINGE (J1650 PER 10MG) SC SCH (09:28)
[2023-11-16] MEDS: VANCOMYCIN HCL 1,000 MG, VIAL MATE ADAPTER 1 EACH in NS 250 ML IV SCH (11:35)
[2023-11-16 12:44] LABS: HEPATITIS C VIRUS ABY INDEX 0.03 INDEX (<0.8)
[2023-11-16 12:45] LABS: HEPATITIS B CORE ANTIBODY IGM NEGATIVE (NEGATIVE)
[2023-11-16 15:00] VITALS: BP 133/81; TEMP 97.7; O2SAT 95
[2023-11-16 21:34] VITALS: BP 131/78; TEMP 98.2; O2SAT 95
[2023-11-16] MEDS: methylPREDNISolone 1,000 MG, VIAL MATE ADAPTER 1 EACH in NS 250 ML IV SCH (21:45)
[2023-11-16] MEDS ORDERED: methylPREDNISolone 125MG 2ML VIAL IV SCH (23:00)
[2023-11-17 05:26] VITALS: BP 130/76; TEMP 97.9; O2SAT 97
[2023-11-17 08:00] VITALS: BP 146/70; TEMP 99; O2SAT 94
[2023-11-17] MEDS ORDERED: PRED10TA2 PO (11:36)
== END 2023-11-17 13:29 | disposition home or self-care (01) | DRG 60 ==
LOC: EDBD 19:43 → M ED 19:43 → M ED INP 23:03 → ENRESERV 11-16 00:34 → M MSPAV 11-16 01:41
PROVIDERS: ADMIT Family Medicine; ATTEND Student in an Organized Health Care Education/Training Program
DX: G35 Multiple sclerosis (principal); R74.01 Elevation of levels of liver transaminase levels; S80.219A Abrasion, unspecified knee, initial encounter; K76.0 Fatty (change of) liver, not elsewhere classified; Z79.899 Other long term (current) drug therapy; X58.XXXA Exposure to other specified factors, initial encounter; Y92.009 Unspecified place in unspecified non-institutional (private) residence as the place of occurrence of the external cause

== ENCOUNTER 2023-12-03 14:31 | Outpatient (CLI) | payer MEDICARE ==
[~2023-12-03] VITALS: Ht 182.9 cm; Wt 105.0 kg
[~2023-12-03 14:31] MED LIST changes: +PRED10TA2 PO; +VALA500T5 PO
[2023-12-03 14:45] VITALS: BP 152/90; O2SAT 100
[2023-12-03] MEDS: methylPREDNISolone 1,000 MG, VIAL MATE ADAPTER 1 EACH in NS 250 ML IV ONE (15:07)
[2023-12-03 15:50] VITALS: BP 142/84; O2SAT 97
[2023-12-03 16:18] VITALS: BP 122/80; O2SAT 100
== END 2023-12-03 15:20 ==
LOC: M INFU 14:31
PROVIDERS: ATTEND Physician Assistant
DX: G35 Multiple sclerosis (principal)
CPT/HCPCS: 96365; J2919

== ENCOUNTER 2023-12-04 14:39 | Outpatient (CLI) | payer MEDICARE ==
[~2023-12-04] VITALS: Ht 182.9 cm; Wt 100.0 kg
[2023-12-04 14:50] VITALS: BP 154/88; O2SAT 99
[2023-12-04] MEDS: methylPREDNISolone 1,000 MG, VIAL MATE ADAPTER 1 EACH in NS 250 ML IV ONE (15:06)
[2023-12-04 16:15] VITALS: BP 140/76; O2SAT 99
== END 2023-12-04 16:30 | disposition home or self-care (01) ==
LOC: M INFU 14:39
PROVIDERS: ATTEND Physician Assistant
DX: G35 Multiple sclerosis (principal)
CPT/HCPCS: 96365; J2919

== ENCOUNTER 2023-12-05 14:59 | Outpatient (CLI) | payer MEDICARE ==
[~2023-12-05] VITALS: Ht 182.9 cm; Wt 99.8 kg
[2023-12-05 15:12] VITALS: BP 124/80; O2SAT 93
[2023-12-05 17:24] VITALS: BP 119/79; O2SAT 97
[2023-12-05] MEDS: methylPREDNISolone 1,000 MG, VIAL MATE ADAPTER 1 EACH in NS 250 ML IV ONE (17:25)
[2023-12-05 18:43] VITALS: BP 120/77; O2SAT 100
== END 2023-12-05 19:47 | disposition home or self-care (01) ==
LOC: M OPCLI4PV 14:59 → M MSPAV 15:04 → M OPCLI4PV 19:47
PROVIDERS: ATTEND Physician Assistant
DX: G35 Multiple sclerosis (principal)
CPT/HCPCS: 96365; J2919

== ENCOUNTER 2023-12-06 12:14 | Outpatient (CLI) | payer MEDICARE ==
[~2023-12-06] VITALS: Ht 182.9 cm; Wt 99.7 kg
[2023-12-06] MEDS: methylPREDNISolone 1,000 MG, VIAL MATE ADAPTER 1 EACH in NS 250 ML IV ONE (13:18)
== END 2023-12-06 14:30 | disposition home or self-care (01) ==
LOC: M OPCLI5PR 12:14 → M MS5PR 12:19 → M OPCLI5PR 14:30
PROVIDERS: ATTEND Physician Assistant
DX: G35 Multiple sclerosis (principal)
CPT/HCPCS: 96365; J2919

== ENCOUNTER → 2023-12-07 | Outpatient (CLI) | payer MEDICARE ==
[~2023-12-07] VITALS: Ht 182.9 cm; Wt 99.2 kg
[2023-12-07 08:00] VITALS: BP 130/80; O2SAT 99
[2023-12-07] MEDS: methylPREDNISolone 1,000 MG, VIAL MATE ADAPTER 1 EACH in NS 250 ML IV ONE (08:02)
[2023-12-07 09:08] VITALS: BP 133/76; O2SAT 99
== END ==
LOC: M INFU 07:39
PROVIDERS: ATTEND Physician Assistant
DX: G35 Multiple sclerosis (principal)
CPT/HCPCS: 96365; J2919

== ENCOUNTER 2024-02-03 07:37 | Emergency (ER) | payer MEDICARE ==
[~2024-02-03] VITALS: Ht 182.9 cm; Wt 100.0 kg
[2024-02-03] MEDS ORDERED: HOME MED LIST COMPLETE! XX SCH (08:50)
[2024-02-03 08:52] VITALS: O2SAT 98
[2024-02-03 09:00] VITALS: BP 109/64; TEMP 97.6
== END 2024-02-03 09:10 | disposition home or self-care (01) ==
LOC: M ED 07:37 → EDBD 07:37 → M ED 09:10
DX: G35 Multiple sclerosis (principal); R68.89 Other general symptoms and signs; Z79.83 Long term (current) use of bisphosphonates; Z79.899 Other long term (current) drug therapy

== ENCOUNTER 2024-02-03 09:28 | Outpatient (CLI) | payer MEDICARE ==
[~2024-02-03] VITALS: Ht 182.9 cm; Wt 100.0 kg
[~2024-02-03 09:28] MED LIST changes: +OCRELIZUMAB 600 MG in NS 500 ML IV ONE
[2024-02-03 09:40] VITALS: BP 132/87; O2SAT 96
[2024-02-03] MEDS: diphenhydrAMINE 25MG CAP PO ONE (09:59)
[2024-02-03] MEDS: ACETAMINOPHEN TAB 650MG DOSE (2X325MG) PO ONE (09:59)
[2024-02-03] MEDS: methylPREDNISolone 125MG 2ML VIAL IV ONE (10:00)
[2024-02-03] MEDS: OCRELIZUMAB 600 MG in NS 500 ML IV ONE (10:32)
[2024-02-03 14:30] VITALS: BP 125/67; O2SAT 96
== END 2024-02-03 14:30 | disposition home or self-care (01) ==
LOC: M INFU 09:28
PROVIDERS: ATTEND Psychiatry & Neurology Neurology
DX: G35 Multiple sclerosis (principal)
CPT/HCPCS: 96365; 96366; 96367; J2350; J2919

== ENCOUNTER 2024-03-20 09:15 | Inpatient (IN) | payer MEDICARE, MEDICAID ==
[2024-03-20] VITALS (25 sets, daily range): BP systolic 105–135; BP diastolic 76–92; TEMP 97.1–97.8; O2SAT 90–97
[~2024-03-20] VITALS: Ht 182.9 cm; Wt 107.0 kg
[2024-03-20] MEDS: PANTOPRAZOLE 40MG VIAL IV SCH (09:00)
[~2024-03-20 09:15] MED LIST changes: -OCRELIZUMAB 600 MG in NS 500 ML IV ONE
[2024-03-20 09:31] LABS: ABG BASE EXCESS -2.3 (-2.0-2.0); ABG HCO3 19.3 MMOL/L (22.0-26.0); ABG O2 SATURATION 90.4 % (95.0-99.0); ABG PARTIAL PRESSURE CO2 26.2 mmHg (35.0-45.0); ABG PARTIAL PRESSURE O2 55.9 mmHg (75.0-100.0); ABG STANDARD HCO3 22.4 MMOL/L. (22.0-26.0); ABG TOTAL CO2 20.1 MMOL/L (22.0-29.0); ABG pH (ARTERIAL) 7.486 UNITS (7.350-7.450)
[2024-03-20] MEDS ORDERED: ISOVUE-370 76% 100ML VIAL As Ordered ONE (09:44)
[2024-03-20 10:03] LABS: BASO # 0.1 10^3/uL (0.0-0.2); BASO % 0.5 % (0.0-1.0); EOS # 0.1 10^3/uL (0.0-0.5); EOS % 0.6 % (0.0-3.0); HEMATOCRIT 43.4 % (42.0-52.0); HEMOGLOBIN 14.9 g/dl (13.5-17.5); LYMPH % 13.2 % (24.0-44.0); MEAN CORPUSCULAR HEMOGLOBIN 31.2 pg (27.0-33.0); MEAN CORPUSCULAR HGB CONC 34.3 g/dl (32.0-36.5); MONO # 1.2 10^3/uL (0.0-0.8); MONO % 8.1 % (2.0-8.0); NEUTROPHILS # 11.6 10^3/uL (1.5-8.5); NEUTROPHILS % 77.1 % (36.0-66.0); PLATELET COUNT, AUTOMATED 214 10^3/uL (150-450); RED BLOOD COUNT 4.77 10^6/uL (4.30-6.10)
[2024-03-20 10:20] LABS: ALBUMIN 3.5 G/DL (3.2-5.2); ALKALINE PHOSPHATASE 162 U/L (46-116); ALT/SGPT 87 U/L (7.0-40); AST/SGOT 49 U/L (<34); BILIRUBIN,DIRECT 0.4 MG/DL (<0.4); BILIRUBIN,TOTAL 1.1 MG/DL (0.3-1.2); BLOOD UREA NITROGEN 16 MG/DL (9-23); CALCIUM LEVEL 9.4 MG/DL (8.5-10.1); CARBON DIOXIDE LEVEL 21 MMOL/L (20-31); CHLORIDE LEVEL 109 MMOL/L (98-107); CREATININE FOR GFR 1.09 MG/DL (0.70-1.30); GLOMERULAR FILTRATION RATE > 60.0 (>56); GLUCOSE, FASTING 143 MG/DL (60-100); POTASSIUM SERUM 3.9 MMOL/L (3.5-5.1); SODIUM LEVEL 142 MMOL/L (136-145); TOTAL PROTEIN 6.8 G/DL (5.7-8.2)
[2024-03-20 10:22] LABS: THYROID STIMULATING HORMONE 2.453 uIU/ML (0.55-4.78)
[2024-03-20 10:38] LABS: INR 1.19; PARTIAL THROMBOPLASTIN TIME 31.3 SECONDS (24.8-34.2); PROTHROMBIN TIME 14.8 SECONDS (12.5-14.5)
[2024-03-20] MEDS: HEPARIN SOD (PORCINE) 5000UNITS/ML 1ML VIAL/SYRINGE IV ONE (10:41)
[2024-03-20] MEDS: HEPARIN DRIP 25,000 UNITS in IV 1 EA IV SCH (10:43)
[2024-03-20] MEDS ORDERED: HEPARIN SOD (PORCINE) 5000UNITS/ML 1ML VIAL/SYRINGE IV PRN (12:10)
[2024-03-20] MEDS ORDERED: HOME MED LIST COMPLETE! XX SCH (12:40)
[2024-03-20 23:10] LABS: INR 1.19; PARTIAL THROMBOPLASTIN TIME 75.9 SECONDS (24.8-34.2); PROTHROMBIN TIME 14.8 SECONDS (12.5-14.5)
[2024-03-21] VITALS (55 sets, daily range): BP systolic 103–137; BP diastolic 71–92; TEMP 97.6–98.1; O2SAT 94–100
[2024-03-21] MEDS: HEPARIN DRIP 25,000 UNITS in IV 1 EA IV SCH (04:21)
[2024-03-21 04:48] LABS: BASO # 0.1 10^3/uL (0.0-0.2); BASO % 0.6 % (0.0-1.0); EOS # 0.1 10^3/uL (0.0-0.5); EOS % 0.6 % (0.0-3.0); HEMATOCRIT 41.1 % (42.0-52.0); HEMOGLOBIN 14.1 g/dl (13.5-17.5); LYMPH # 1.9 10^3/uL (1.5-5.0); LYMPH % 14.9 % (24.0-44.0); MEAN CORPUSCULAR HEMOGLOBIN 31.3 pg (27.0-33.0); MEAN CORPUSCULAR HGB CONC 34.3 g/dl (32.0-36.5); MEAN CORPUSCULAR VOLUME 91.3 fl (80.0-96.0); MONO # 1.5 10^3/uL (0.0-0.8); MONO % 12.2 % (2.0-8.0); NEUTROPHILS # 8.8 10^3/uL (1.5-8.5); NEUTROPHILS % 71.2 % (36.0-66.0); PLATELET COUNT, AUTOMATED 205 10^3/uL (150-450); WHITE BLOOD COUNT 12.4 10^3/uL (4.0-10.0)
[2024-03-21 05:23] LABS: ALBUMIN 3.2 G/DL (3.2-5.2); ALKALINE PHOSPHATASE 141 U/L (46-116); ALT/SGPT 65 U/L (7.0-40); AST/SGOT 42 U/L (<34); BILIRUBIN,TOTAL 0.6 MG/DL (0.3-1.2); BLOOD UREA NITROGEN 14 MG/DL (9-23); CARBON DIOXIDE LEVEL 24 MMOL/L (20-31); CHLORIDE LEVEL 111 MMOL/L (98-107); CREATININE FOR GFR 0.96 MG/DL (0.70-1.30); GLOMERULAR FILTRATION RATE > 60.0 (>56); GLUCOSE, FASTING 107 MG/DL (60-100); PHOSPHORUS LEVEL 3.9 MG/DL (2.5-4.9); POTASSIUM SERUM 4.2 MMOL/L (3.5-5.1); SODIUM LEVEL 142 MMOL/L (136-145); TOTAL PROTEIN 6.2 G/DL (5.7-8.2)
[2024-03-21] MEDS: valACYclovir HCL 500 MG TAB PO SCH (09:00)
[2024-03-21] MEDS ORDERED: traZODone 50 MG TAB PO PRN (11:00)
[2024-03-21] MEDS ORDERED: oxyBUTYnin 5 MG TAB PO PRN (11:00)
[2024-03-21] MEDS: cefTRIAXone SOD 2 GM in D5W MINI-BAG PLUS 50 ML IV SCH (11:27)
[2024-03-22] VITALS (28 sets, daily range): BP systolic 113–138; BP diastolic 66–89; TEMP 97.9–98.6; O2SAT 92–99
[2024-03-22] MEDS ORDERED: HYDROMORPHONE HCL 0.5 MG/ 0.5 ML SYRINGE IV PRN (03:55)
[2024-03-22] MEDS: HYDROMORPHONE HCL 0.5 MG/ 0.5 ML SYRINGE IV PRN (04:01)
[2024-03-22 04:40] LABS: BASO # 0.1 10^3/uL (0.0-0.2); BASO % 0.5 % (0.0-1.0); EOS # 0.1 10^3/uL (0.0-0.5); EOS % 0.5 % (0.0-3.0); HEMATOCRIT 42.8 % (42.0-52.0); HEMOGLOBIN 14.3 g/dl (13.5-17.5); LYMPH # 1.6 10^3/uL (1.5-5.0); LYMPH % 12.1 % (24.0-44.0); MEAN CORPUSCULAR HEMOGLOBIN 31.3 pg (27.0-33.0); MEAN CORPUSCULAR HGB CONC 33.4 g/dl (32.0-36.5); MEAN CORPUSCULAR VOLUME 93.7 fl (80.0-96.0); MONO # 1.8 10^3/uL (0.0-0.8); MONO % 13.7 % (2.0-8.0); NEUTROPHILS # 9.4 10^3/uL (1.5-8.5); NEUTROPHILS % 72.7 % (36.0-66.0); PLATELET COUNT, AUTOMATED 203 10^3/uL (150-450); RED BLOOD COUNT 4.57 10^6/uL (4.30-6.10); WHITE BLOOD COUNT 12.9 10^3/uL (4.0-10.0)
[2024-03-22 05:01] LABS: ALBUMIN 3.3 G/DL (3.2-5.2); ALKALINE PHOSPHATASE 152 U/L (46-116); ALT/SGPT 79 U/L (7.0-40); AST/SGOT 70 U/L (<34); BILIRUBIN,TOTAL 0.9 MG/DL (0.3-1.2); BLOOD UREA NITROGEN 12 MG/DL (9-23); CALCIUM LEVEL 9.2 MG/DL (8.5-10.1); CARBON DIOXIDE LEVEL 25 MMOL/L (20-31); CHLORIDE LEVEL 109 MMOL/L (98-107); CREATININE FOR GFR 0.97 MG/DL (0.70-1.30); GLOMERULAR FILTRATION RATE > 60.0 (>56); GLUCOSE, FASTING 110 MG/DL (60-100); POTASSIUM SERUM 4.1 MMOL/L (3.5-5.1); SODIUM LEVEL 140 MMOL/L (136-145); TOTAL PROTEIN 6.5 G/DL (5.7-8.2)
[2024-03-22] MEDS ORDERED: ISOVUE-300 61% 100ML VIAL As Ordered ONE (07:22)
[2024-03-22] MEDS ORDERED: MIDAZOLAM INJ 2MG/2ML VIAL As Ordered ONE (07:22)
[2024-03-22] MEDS ORDERED: fentaNYL 100 MCG/2 ML INJECTION As Ordered ONE (07:22)
[2024-03-22] MEDS ORDERED: HEPARIN 1,000UNITS/ML 10ML VIAL (FOR RADIOLOGY & DIALYSIS ONLY) As Ordered ONE (07:22)
[2024-03-22] MEDS ORDERED: LIDOCAINE 1% MDV 20ML VIAL As Ordered ONE (07:23)
[2024-03-22] MEDS: MIDAZOLAM INJ 2MG/2ML VIAL IV ONE (09:03)
[2024-03-22] MEDS: HEPARIN 1,000UNITS/ML 10ML VIAL (FOR RADIOLOGY & DIALYSIS ONLY) IV ONE ×2 (09:42)
[2024-03-22] MEDS: ACETAMINOPHEN *IV* 1,000 MG in IV 1 EA IV PRN (14:20)
[2024-03-22] MEDS ORDERED: MORPHINE 2 MG/ML 1ML VIAL IV PRN (15:40)
[2024-03-22] MEDS ORDERED: MORPHINE 4 MG/ML 1ML VIAL IV PRN (15:40)
[2024-03-22] MEDS: ACETAMINOPHEN TAB 650MG DOSE (2X325MG) PO SCH (17:00)
[2024-03-22] MEDS: ENOXAPARIN 120MG/0.8ML SYRINGE SC SCH (20:25)
[2024-03-23 01:29] LABS: CARDIOLIPIN IGG ANTIBODY < 2.0 GPL-U/mL (<20.0); CARDIOLIPIN IGM ANTIBODY 6.4 MPL-U/mL (<20.0)
[2024-03-23 04:27] LABS: HEMATOCRIT 38.1 % (42.0-52.0); HEMOGLOBIN 12.6 g/dl (13.5-17.5); MEAN CORPUSCULAR HGB CONC 33.1 g/dl (32.0-36.5); MEAN CORPUSCULAR VOLUME 93.8 fl (80.0-96.0); PLATELET COUNT, AUTOMATED 201 10^3/uL (150-450); RED BLOOD COUNT 4.06 10^6/uL (4.30-6.10); WHITE BLOOD COUNT 10.1 10^3/uL (4.0-10.0)
[2024-03-23 04:58] LABS: ALBUMIN 2.8 G/DL (3.2-5.2); ALKALINE PHOSPHATASE 150 U/L (46-116); ALT/SGPT 123 U/L (7.0-40); AST/SGOT 106 U/L (<34); BILIRUBIN,TOTAL 0.9 MG/DL (0.3-1.2); BLOOD UREA NITROGEN 14 MG/DL (9-23); CALCIUM LEVEL 8.7 MG/DL (8.5-10.1); CARBON DIOXIDE LEVEL 24 MMOL/L (20-31); CHLORIDE LEVEL 109 MMOL/L (98-107); GLOMERULAR FILTRATION RATE > 60.0 (>56); GLUCOSE, FASTING 97 MG/DL (60-100); POTASSIUM SERUM 4.2 MMOL/L (3.5-5.1); SODIUM LEVEL 141 MMOL/L (136-145); TOTAL PROTEIN 5.7 G/DL (5.7-8.2)
[2024-03-23 08:00] VITALS: BP 135/79; TEMP 98.1; O2SAT 95
[2024-03-23] MEDS ORDERED: PERCOCET 5MG/325MG TAB PO PRN ×2 (08:00)
[2024-03-23] MEDS ORDERED: MOM 30ML SUSPENSION UDC PO PRN (08:00)
[2024-03-23] MEDS: DOCUSATE SODIUM 100MG CAPSULE PO SCH (08:49)
[2024-03-23 12:00] VITALS: BP 136/77; TEMP 97.9; O2SAT 96
[2024-03-23] MEDS ORDERED: OLANZapine INTRAMUSCULAR 10MG VIAL IM ONE (13:20)
[2024-03-23] MEDS ORDERED: oxyCODONE 5MG TAB PO PRN (13:25)
[2024-03-23] MEDS ORDERED: traMADol 50 MG TAB PO PRN (13:25)
[2024-03-23 14:15] VITALS: BP 121/81; TEMP 98.1; O2SAT 98
[2024-03-23] MEDS: IBUPROFEN 600MG TAB PO SCH (14:30)
[2024-03-23 17:51] LABS: DRVV SCREEN 51.5 SECONDS
[2024-03-23 18:15] LABS: PTT LUPUS TYPE ANTICOAG SCREEN 1.36 (0-1.20)
[2024-03-23 18:22] LABS: DRVV CONFIRM 42.6 SECONDS; LUPUS CONFIRM RATIO 1.13
[2024-03-23 18:31] LABS: NORMALIZED RATIO 1.2 (0.00-1.20)
[2024-03-23 20:33] VITALS: BP 111/70; TEMP 97.7; O2SAT 95
[2024-03-23] MEDS: SENNA 8.6 MG TAB (SENOKOT) PO SCH (21:17)
[2024-03-24] VITALS: BP 11/71; TEMP 97.7; O2SAT 96
[2024-03-24 04:30] VITALS: BP 109/68; TEMP 97.2; O2SAT 98
[2024-03-24 07:07] LABS: HEMATOCRIT 36.3 % (42.0-52.0); HEMOGLOBIN 12.2 g/dl (13.5-17.5); MEAN CORPUSCULAR HEMOGLOBIN 31.3 pg (27.0-33.0); MEAN CORPUSCULAR HGB CONC 33.6 g/dl (32.0-36.5); MEAN CORPUSCULAR VOLUME 93.1 fl (80.0-96.0); PLATELET COUNT, AUTOMATED 215 10^3/uL (150-450); WHITE BLOOD COUNT 5.5 10^3/uL (4.0-10.0)
[2024-03-24 07:50] LABS: ALBUMIN 2.7 G/DL (3.2-5.2); ALKALINE PHOSPHATASE 142 U/L (46-116); ALT/SGPT 117 U/L (7.0-40); AST/SGOT 75 U/L (<34); BILIRUBIN,TOTAL 0.4 MG/DL (0.3-1.2); BLOOD UREA NITROGEN 15 MG/DL (9-23); CALCIUM LEVEL 9.1 MG/DL (8.5-10.1); CARBON DIOXIDE LEVEL 25 MMOL/L (20-31); CHLORIDE LEVEL 110 MMOL/L (98-107); CREATININE FOR GFR 0.86 MG/DL (0.70-1.30); GLOMERULAR FILTRATION RATE > 60.0 (>56); GLUCOSE, FASTING 86 MG/DL (60-100); POTASSIUM SERUM 3.8 MMOL/L (3.5-5.1); SODIUM LEVEL 142 MMOL/L (136-145); TOTAL PROTEIN 5.5 G/DL (5.7-8.2)
[2024-03-24] MEDS: CEFDINIR 300 MG CAP (OMNICEF) PO SCH (07:58)
[2024-03-24] MEDS: FUROSEMIDE 40 MG TAB PO SCH (07:59)
[2024-03-24 08:00] VITALS: BP 109/69; TEMP 97.7; O2SAT 96
[2024-03-24 12:00] VITALS: BP 115/76; TEMP 97.7; O2SAT 95
[2024-03-24 13:51] VITALS: BP 117/79; TEMP 97.5; O2SAT 96
[2024-03-24 17:08] LABS: PHOSPHOLIPIDS LEVEL 207 mg/dL (151-264)
[2024-03-24 20:00] VITALS: BP 127/63; TEMP 97.3; O2SAT 95
[2024-03-24] MEDS: APIXABAN 5 MG TAB (ELIQUIS) PO SCH (21:04)
[2024-03-25 02:33] LABS: PROTEIN C FUNCTIONAL ACTIVITY 68 % normal (70-180); PROTEIN S FUNCTIONAL ACTIVITY 95 % normal (70-150)
[2024-03-25 04:00] VITALS: BP 122/64; TEMP 97.5; O2SAT 98
[2024-03-25 06:11] LABS: HEMATOCRIT 39.2 % (42.0-52.0); HEMOGLOBIN 13.1 g/dl (13.5-17.5); MEAN CORPUSCULAR HEMOGLOBIN 30.8 pg (27.0-33.0); MEAN CORPUSCULAR HGB CONC 33.4 g/dl (32.0-36.5); MEAN CORPUSCULAR VOLUME 92.2 fl (80.0-96.0); PLATELET COUNT, AUTOMATED 263 10^3/uL (150-450); RED BLOOD COUNT 4.25 10^6/uL (4.30-6.10)
[2024-03-25 06:36] LABS: ALKALINE PHOSPHATASE 154 U/L (46-116); ALT/SGPT 103 U/L (7.0-40); AST/SGOT 52 U/L (<34); BILIRUBIN,TOTAL 0.5 MG/DL (0.3-1.2); BLOOD UREA NITROGEN 15 MG/DL (9-23); CALCIUM LEVEL 9.3 MG/DL (8.5-10.1); CARBON DIOXIDE LEVEL 26 MMOL/L (20-31); CHLORIDE LEVEL 110 MMOL/L (98-107); CREATININE FOR GFR 0.89 MG/DL (0.70-1.30); GLOMERULAR FILTRATION RATE > 60.0 (>56); GLUCOSE, FASTING 89 MG/DL (60-100); POTASSIUM SERUM 3.8 MMOL/L (3.5-5.1); SODIUM LEVEL 143 MMOL/L (136-145); TOTAL PROTEIN 5.9 G/DL (5.7-8.2)
[2024-03-25] MEDS: FUROSEMIDE 40MG/4ML VIAL IV SCH (08:34)
[2024-03-25 12:00] VITALS: BP 121/78; TEMP 97.5; O2SAT 99
[2024-03-25] MEDS ORDERED: MOM30SS2 PO (17:54)
[2024-03-25] MEDS ORDERED: SENO8.6T5 PO (17:54)
[2024-03-25] MEDS ORDERED: LASI20TA3 PO (17:54)
[2024-03-25] MEDS ORDERED: IBUP-1022 PO (17:54)
[2024-03-25] MEDS ORDERED: ELIQ5TAB PO (17:54)
[2024-03-25] MEDS ORDERED: TRAM50TA2 PO (17:54)
[2024-03-25] MEDS ORDERED: COLA100C5 PO (17:54)
[2024-03-25] MEDS ORDERED: CEFD300CAP PO (17:55)
[2024-03-25 20:00] VITALS: BP 121/72; TEMP 97.3; O2SAT 97
[2024-03-25] MEDS ORDERED: DOCUSATE SODIUM 100MG CAPSULE PO SCH (21:00)
[2024-03-25] MEDS ORDERED: SENNA 8.6 MG TAB (SENOKOT) PO SCH (21:00)
[2024-03-26 04:00] VITALS: BP 117/71; TEMP 97.5; O2SAT 93
[2024-03-26 06:37] LABS: HEMATOCRIT 44.3 % (42.0-52.0); HEMOGLOBIN 14.8 g/dl (13.5-17.5); MEAN CORPUSCULAR HEMOGLOBIN 31.4 pg (27.0-33.0); MEAN CORPUSCULAR HGB CONC 33.4 g/dl (32.0-36.5); MEAN CORPUSCULAR VOLUME 93.9 fl (80.0-96.0); RED BLOOD COUNT 4.72 10^6/uL (4.30-6.10); WHITE BLOOD COUNT 7.5 10^3/uL (4.0-10.0)
[2024-03-26 07:15] LABS: ALBUMIN 3.3 G/DL (3.2-5.2); ALKALINE PHOSPHATASE 162 U/L (46-116); ALT/SGPT 98 U/L (7.0-40); AST/SGOT 62 U/L (<34); BILIRUBIN,TOTAL 0.5 MG/DL (0.3-1.2); BLOOD UREA NITROGEN 14 MG/DL (9-23); CALCIUM LEVEL 9.3 MG/DL (8.5-10.1); CARBON DIOXIDE LEVEL 23 MMOL/L (20-31); CHLORIDE LEVEL 109 MMOL/L (98-107); CREATININE FOR GFR 0.87 MG/DL (0.70-1.30); GLOMERULAR FILTRATION RATE > 60.0 (>56); GLUCOSE, FASTING 97 MG/DL (60-100); POTASSIUM SERUM 4.6 MMOL/L (3.5-5.1); SODIUM LEVEL 141 MMOL/L (136-145); TOTAL PROTEIN 6.5 G/DL (5.7-8.2)
[2024-03-26] MEDS: FUROSEMIDE 40 MG TAB PO SCH (08:25)
[2024-03-27 23:27] LABS: ANTI THROMBIN 3 ANTIGEN IMMUNO 106 % normal (80-120); ANTI THROMBIN 3 FUNCT ACTIVITY 106 % normal (80-135)
[2024-03-28 15:17] LABS: FACTOR V LEIDEN FOR MEDINET NEGATIVE
[2024-03-28 15:47] LABS: FACTOR II PROTHROMBIN GENE AN POSITIVE
[2024-03-31] MEDS ORDERED: APIXABAN 5 MG TAB (ELIQUIS) PO SCH (21:00)
== END 2024-03-26 11:10 | disposition home or self-care (01) | DRG 163 ==
LOC: M ED 09:15 → EDBD 09:15 → M ED INP 12:08 → M ICU 15:27 → M MSPAV 03-23 14:15
PROVIDERS: ADMIT Internal Medicine Pulmonary Disease; ATTEND Internal Medicine
PROC: 02CR4ZZ Extirpation of Matter from Left Pulmonary Artery, Percutaneous Endoscopic Approach (ICD-10-PCS; 2024-03-22)
PROC: B31SYZZ Fluoroscopy of Right Pulmonary Artery using Other Contrast (ICD-10-PCS; 2024-03-22)
PROC: B31TYZZ Fluoroscopy of Left Pulmonary Artery using Other Contrast (ICD-10-PCS; 2024-03-22)
PROC: 02C Heart and Great Vessels, Extirpation (ICD-10-PCS; principal; 2024-03-22 08:00)
DX: I26.02 Saddle embolus of pulmonary artery with acute cor pulmonale (principal); J96.01 Acute respiratory failure with hypoxia; J18.9 Pneumonia, unspecified organism; I50.813 Acute on chronic right heart failure; G35 Multiple sclerosis; I27.20 Pulmonary hypertension, unspecified; R74.01 Elevation of levels of liver transaminase levels; K59.00 Constipation, unspecified; Z79.899 Other long term (current) drug therapy

== ENCOUNTER → 2024-05-18 | Outpatient (POV) | payer MEDICARE, MEDICAID ==
[~2024-05-18] VITALS: Ht 182.9 cm; Wt 100.0 kg
[~2024-05-18] MED LIST changes: +CEFD300CAP PO; +COLA100C5 PO; +ELIQ5TAB PO; +LASI20TA3 PO; +MOM30SS2 PO; +SENO8.6T5 PO; +TRAM50TA2 PO
[2024-05-18 13:55] VITALS: BP 153/88; O2SAT 97
== END ==
LOC: M IRPOV 13:23
PROVIDERS: ATTEND Radiology Diagnostic Radiology
DX: Z09 Encounter for follow-up examination after completed treatment for conditions other than malignant neoplasm (principal); R60.0 Localized edema; G35 Multiple sclerosis; Z79.01 Long term (current) use of anticoagulants; Z86.711 Personal history of pulmonary embolism; Z86.718 Personal history of other venous thrombosis and embolism

== ENCOUNTER → 2024-06-07 | Outpatient (CLI) | payer MEDICARE, MEDICAID | LOC: M PLAIMG 10:23 | PROVIDERS: ATTEND Urology | DX: N20.0 Calculus of kidney (principal) ==

== ENCOUNTER 2024-07-26 07:59 | Outpatient (RCR) | payer MEDICARE, MEDICAID | END 2024-07-30 | LOC: M PT 07:59 | PROVIDERS: ATTEND Obstetrics & Gynecology Hospice and Palliative Medicine | DX: R53.1 Weakness (principal) ==

== ENCOUNTER 2024-08-08 08:07 | Outpatient (CLI) | payer MEDICARE, MEDICAID ==
[~2024-08-08] VITALS: Ht 182.9 cm; Wt 100.0 kg
[2024-08-08] VITALS (7 sets, daily range): BP systolic 118–140; BP diastolic 71–79; O2SAT 96–99
[2024-08-08] MEDS: ACETAMINOPHEN 325 MG TAB PO ONE (08:42)
[2024-08-08] MEDS: diphenhydrAMINE 25MG CAP PO ONE (08:42)
[2024-08-08] MEDS: methylPREDNISolone 125MG 2ML VIAL IV ONE (08:43)
[2024-08-08] MEDS: OCRELIZUMAB 600 MG in NS 500 ML IV ONE (09:31)
== END 2024-08-08 13:40 ==
LOC: M INFU 08:07
PROVIDERS: ATTEND Psychiatry & Neurology Neurology
DX: G35 Multiple sclerosis (principal)
CPT/HCPCS: 96365; 96366; 96375; J2350; J2919

== ENCOUNTER 2024-08-11 09:02 | Outpatient (RCR) | payer MEDICARE, MEDICAID | END 2024-08-30 | LOC: M PT 09:02 | PROVIDERS: ATTEND Obstetrics & Gynecology Hospice and Palliative Medicine | DX: R53.1 Weakness (principal); G35 Multiple sclerosis ==

== ENCOUNTER 2024-10-25 12:41 | Emergency (ER) | payer MEDICARE, MEDICAID ==
[~2024-10-25] VITALS: Ht 182.9 cm; Wt 99.7 kg
[2024-10-25 13:39] LABS: BASO # 0.1 10^3/uL (0.0-0.2); BASO % 0.9 % (0.0-1.0); EOS # 0.1 10^3/uL (0.0-0.5); EOS % 1.2 % (0.0-3.0); HEMATOCRIT 47.5 % (42.0-52.0); HEMOGLOBIN 15.8 g/dl (13.5-17.5); LYMPH # 1.3 10^3/uL (1.5-5.0); LYMPH % 14.1 % (24.0-44.0); MEAN CORPUSCULAR HGB CONC 33.3 g/dl (32.0-36.5); MEAN CORPUSCULAR VOLUME 96.2 fl (80.0-96.0); MONO # 1.1 10^3/uL (0.0-0.8); MONO % 11.9 % (2.0-8.0); NEUTROPHILS # 6.5 10^3/uL (1.5-8.5); NEUTROPHILS % 71.5 % (36.0-66.0); PLATELET COUNT, AUTOMATED 264 10^3/uL (150-450); RED BLOOD COUNT 4.94 10^6/uL (4.30-6.10); WHITE BLOOD COUNT 9.1 10^3/uL (4.0-10.0)
[2024-10-25 14:09] LABS: BLOOD UREA NITROGEN 18 MG/DL (9-23); CALCIUM LEVEL 9.5 MG/DL (8.5-10.1); CARBON DIOXIDE LEVEL 33 MMOL/L (20-31); CHLORIDE LEVEL 104 MMOL/L (98-107); CREATININE FOR GFR 1.16 MG/DL (0.70-1.30); GLOMERULAR FILTRATION RATE > 60.0 (>56); GLUCOSE, FASTING 103 MG/DL (60-100); POTASSIUM SERUM 4.1 MMOL/L (3.5-5.1); SODIUM LEVEL 144 MMOL/L (136-145)
[2024-10-25 14:10] LABS: ALBUMIN 3.8 G/DL (3.2-5.2); BILIRUBIN,DIRECT 0.1 MG/DL (<0.4); BILIRUBIN,TOTAL 0.5 MG/DL (0.3-1.2); TOTAL PROTEIN 7.2 G/DL (5.7-8.2)
[2024-10-25] MEDS: FUROSEMIDE 40 MG TAB PO ONE (20:01)
[2024-10-25] MEDS ORDERED: FURO40TA2 PO (20:53)
[2024-10-25] MEDS ORDERED: T E MIS MC (20:58)
[2024-10-25 21:01] VITALS: BP 135/76; TEMP 97.1; O2SAT 98
== END 2024-10-25 21:09 | disposition home or self-care (01) ==
LOC: M ED 12:41
DX: R22.43 Localized swelling, mass and lump, lower limb, bilateral (principal); G35 Multiple sclerosis; Z87.442 Personal history of urinary calculi; Z79.01 Long term (current) use of anticoagulants; Z79.899 Other long term (current) drug therapy

== ENCOUNTER → 2024-11-29 | Outpatient (REF) | payer MEDICARE, MEDICAID ==
[~2024-11-29] MED LIST changes: +FURO40TA2 PO; +T E MIS MC
[2024-11-29 15:14] LABS: BLOOD UREA NITROGEN 18 MG/DL (9-23); CREATININE FOR GFR 1.31 MG/DL (0.70-1.30); GLOMERULAR FILTRATION RATE > 60.0 (>56)
== END ==
LOC: M LABWUC 14:14
PROVIDERS: ATTEND Physician Assistant
DX: I26.99 Other pulmonary embolism without acute cor pulmonale (principal)

== ENCOUNTER → 2024-12-01 | Outpatient (CLI) | payer MEDICARE, MEDICAID ==
[~2024-12-01] MED LIST changes: +ISOVUE-370 76% 100ML VIAL ONE
== END ==
LOC: M PLAIMG 10:09
PROVIDERS: ATTEND Physician Assistant
DX: I26.99 Other pulmonary embolism without acute cor pulmonale (principal); N20.0 Calculus of kidney
CPT/HCPCS: 74174; Q9967

== ENCOUNTER 2025-03-01 10:51 | Outpatient (CLI) | payer MEDICARE, MEDICAID ==
[~2025-03-01] VITALS: Ht 182.9 cm; Wt 100.0 kg
[~2025-03-01 10:51] MED LIST changes: +ACETAMINOPHEN 325 MG TAB PO ONE; -FLOM0.4C39 PO; -ISOVUE-370 76% 100ML VIAL ONE; +OCRELIZUMAB 600 MG in NS 500 ML IV ONE; +TAMS-18 PO
[2025-03-01 11:25] VITALS: BP 116/76; O2SAT 97
[2025-03-01] MEDS: ACETAMINOPHEN 325 MG TAB PO ONE (11:34)
[2025-03-01] MEDS: OCRELIZUMAB 600 MG in NS 500 ML IV ONE (11:41)
[2025-03-01 12:30] VITALS: BP 114/74; O2SAT 98
[2025-03-01 13:00] VITALS: BP 119/79; O2SAT 98
[2025-03-01 13:30] VITALS: BP 120/81; O2SAT 96
[2025-03-01 15:45] VITALS: BP 139/88; O2SAT 98
== END 2025-03-01 15:50 | disposition home or self-care (01) ==
LOC: M INFU 10:51
PROVIDERS: ATTEND Psychiatry & Neurology Neurology
DX: G35 Multiple sclerosis (principal)
CPT/HCPCS: 96365; 96366; 96375; J2350; J2919

== ENCOUNTER → 2025-06-15 | Outpatient (CLI) | payer MEDICARE, MEDICAID ==
[~2025-06-15] MED LIST changes: -ACETAMINOPHEN 325 MG TAB PO ONE; -IBUP-1022 PO; +IBUP600T42 PO; -OCRELIZUMAB 600 MG in NS 500 ML IV ONE; +SENN-225 PO; -SENO8.6T5 PO
== END ==
LOC: M RAD 09:28
PROVIDERS: ATTEND Urology
DX: N20.0 Calculus of kidney (principal)

== ENCOUNTER → 2025-06-30 | Outpatient (RCR) | payer MEDICARE, MEDICAID | LOC: M PT 06-15 10:03 | PROVIDERS: ATTEND Physician Assistant Medical | DX: I89.0 Lymphedema, not elsewhere classified (principal); G35.D Multiple sclerosis, unspecified ==

== ENCOUNTER 2025-07-25 10:23 | Outpatient (RCR) | payer MEDICARE, MEDICAID | END 2025-07-30 | LOC: M PT 10:23 | PROVIDERS: ATTEND Physician Assistant Medical | DX: I89.0 Lymphedema, not elsewhere classified (principal); G35.D Multiple sclerosis, unspecified; R26.89 Other abnormalities of gait and mobility ==

== ENCOUNTER 2025-08-21 12:14 | Outpatient (RCR) | payer MEDICARE, MEDICAID | END 2025-08-30 | LOC: M PT 12:14 | PROVIDERS: ATTEND Physician Assistant Medical | DX: I89.0 Lymphedema, not elsewhere classified (principal); G35.D Multiple sclerosis, unspecified ==